=== PATIENT | male | born 1960 | race Caucasian/White ===

== ENCOUNTER 2019-09-16 17:36 | Emergency (ER) | payer OTHER, SELFPAY ==
--- OUTSIDE RECORDS SUMMARY | 2019-09-16 17:38 | XMS REPORT ---
:1960 [facility] Address [address] [place] [address] Dr. Rod [address] [place] [id number] Care Team Providers Name Role Phone Unavailable Unavailable Unavailable Problems This patient has no known problems. Allergies, Adverse Reactions, Alerts This patient has no known allergies or adverse reactions. Medications This patient has no known medications.
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
[2019-09-16 19:13] VITALS: BP 135/91; TEMP 97.7; O2SAT 99
== END 2019-09-16 19:04 | disposition home or self-care (01) ==
LOC: ER 17:36
DX: M54.5 Low back pain (principal); V43.53XA Car driver injured in collision with pick-up truck in traffic accident, initial encounter; Y93.9 Activity, unspecified; Y92.410 Unspecified street and highway as the place of occurrence of the external cause; Z88.6 Allergy status to analgesic agent
CPT/HCPCS: 74176; 99284

== ENCOUNTER 2021-06-28 07:37 | Emergency (ER) | payer BC ==
--- OUTSIDE RECORDS SUMMARY | 2021-06-28 07:40 | XMS REPORT | Continuity of Care Document ---
:1960 Author Organization [facility] t Address [address] [place] [address] Dr. Rod [address] [place] [id number] Care Team Providers Name Role Phone Unavailable Unavailable Unavailable Problems This patient has no known problems. Allergies, Adverse Reactions, Alerts This patient has no known allergies or adverse reactions. Medications This patient has no known medications. Procedures This patient has no known procedures. Results This patient has no known results.
[2021-06-28] MEDS ORDERED: ONDANSETRON 4 MG (ODT) TAB ONE (09:36)
[2021-06-28] MEDS ORDERED: ACETAMINOPHEN 500 MG TAB ONE (09:36)
--- NOTE | 2021-06-28 09:52 | RAD REPORT ---
EXAM DESCRIPTION: Deepa Pa And Lat (2 Views)06/28/2021 9:27 am CLINICAL HISTORY: Cough COMPARISON: 2012 FINDINGS: Mild bilateral pulmonary opacities suspected. The heart is normal size IMPRESSION: Mild bilateral pulmonary opacities suspected may indicate mild pneumonia
--- NOTE | 2021-06-28 11:27 | ER ---
Nurse's Notes [facility] Name: Bienvenido Abdi Age: 61 yrs Sex: Male : 1960 Arrival Date: 06/28/2021 Time: 07:41 Bed 25 Private MD: Diagnosis: Coronavirus infection, unspecified Presentation: 06/28 09:05 Chief complaint: Patient states: Diagnosed with COVID last week. Pt reports that he is ss just unable to sleep at night because of the shortness of breath. Coronavirus screen: Client presents with at least one sign or symptom that may indicate coronavirus-19. Standard/surgical mask placed on the client. Provider contacted for isolation considerations. Ebola Screen: Patient denies exposure to infectious person. Patient denies travel to an Ebola-affected area in the 21 days before illness onset. Initial Sepsis Screen: Does the patient meet any 2 criteria? Yes Does the patient have a suspected source of infection? Yes:. Risk Assessment: Do you want to hurt yourself or someone else? Patient reports no desire to harm self or others. Onset of symptoms was June 22, 2021. 09:05 Method Of Arrival: Wheelchair ss 09:05 Acuity: ERVIN 2 ss Historical: - Allergies: 09:07 HYDROCODONE; ss - Home Meds: 09:11 None [Active]; ss - PMHx: 09:11 None; ss - PSHx: 09:11 Appendectomy; Cholecystectomy; ss - Immunization history:: Client reports receiving the 2nd dose of the Covid vaccine. - Social history:: Smoking status: Patient denies any tobacco usage or history of. Screenin:11 Abuse screen: Denies threats or abuse. Denies injuries from another. Nutritional ch5 screening: No deficits noted. Tuberculosis screening: No symptoms or risk factors identified. Fall Risk None identified. Assessment: 11:09 Reassessment: Patient appears in no apparent distress at this time. Patient is alert, ch5 oriented x 3, equal unlabored respirations, skin warm/dry/pink. Pain: C/O arthritic pain throughout 05/09. 12:38 Reassessment: No changes from previously documented assessment. Pt stated " I got a ch5 little nap in ". Vital Signs: 09:05 BP 122 / 85; Pulse 129; Resp 22; Temp 100.3(O); Pulse Ox 96% on R/A; Weight 108.41 kg; ss Height 5 ft. 10 in. (177.80 cm); Pain 6/10; 11:05 BP 130 / 88; Pulse 108; Resp 20; Temp 98; Pulse Ox 95% on R/A; Pain 7/10; ch5 11:11 Pulse 108; ch5 12:41 BP 131 / 89; Pulse 100; Resp 18; Pulse Ox 95% on R/A; Pain 7/10; ch5 09:05 Body Mass Index 34.29 (108.41 kg, 177.80 cm) ED Course: 07:41 Patient arrived in ED. ds1 09:07 Triage completed. ss 09:07 Arm band placed on right wrist. ss 09:14 Iris Isaac FNP-C is [facility]. kb 09:14 Bonilla Salgado MD is Attending Physician. kb 09:27 Chest Pa And Lat (2 Views) XRAY In Process Unspecified. EDMS 11:00 Ruddy Ramirez, RN is Primary Nurse. ch5 11:11 Patient has correct armband on for positive identification. Bed in low position. Call ch5 light in reach. Side rails up X 1. 12:38 No provider procedures requiring assistance completed. Patient did not have IV access ch5 during this emergency room visit. Administered Medications: 09:21 Drug: Tylenol 1000 mg Route: PO; ss 11:11 Follow up: Pulse 108 bpm; Response: Cardiac rhythm changed; Cardiac rhythm changed Hr ch5 down to 108 09:21 Drug: Ondansetron 4 mg Route: PO; ss 11:11 Follow up: Response: Nausea is decreased ch5 Outcome: 11:26 Discharge ordered by MD. kb 12:38 Discharged to home via wheelchair. ch5 12:38 Condition: stable 12:38 Discharge instructions given to patient, family. 12:44 Patient left the ED. ch5 Signatures: Dispatcher [employer] EDNJ Iris Isaac FNP-C FNP-Ckb Sanford, Demi ds1 Arleen Mcduffie RN RN Ruddy Ramirez, RITESH RN ch5 Corrections: (The following items were deleted from the chart) 09:11 09:05 BP 122 / 85; Pulse 129bpm; Resp 22bpm; Pulse Ox 96% RA; Temp 98.0F Temporal; ss 108.41 kg; Height 5 ft. 10 in.; BMI: 34.2; Pain 6/10; ss
--- NOTE | 2021-06-28 11:27 | EDPHYS ---
Physician Documentation [facility] Name: Bienvenido bAdi Age: 61 yrs Sex: Male : 1960 Arrival Date: 06/28/2021 Time: 07:41 Bed 25 Private MD: ED Physician Bonilla Salgado HPI: 06/28 12:16 This 61 yrs old Male presents to ER via Wheelchair with complaints of kb Shortness of Breath -Covid+. 12:16 The patient or guardian reports cough, difficulty breathing. kb 12:16 Onset: The symptoms/episode began/occurred 6 day(s) ago. Severity of symptoms: At their kb worst the symptoms were mild, moderate, in the emergency department the symptoms are unchanged. Modifying factors: The symptoms are alleviated by nothing, the symptoms are aggravated by nothing. Associated signs and symptoms: The patient has no apparent associated signs or symptoms. The patient has not experienced similar symptoms in the past. The patient has not recently seen a physician. Pt reports he was diagnosed with covid last week. Has had cough, shortness of breath and malaise since then, but last night was unable to sleep. States he would dose off and then wake up as he gasped for a breath. No resp distress noted. Oxygen 95-96% on room air. . Historical: - Allergies: 09:07 HYDROCODONE; ss - Home Meds: 09:11 None [Active]; ss - PMHx: 09:11 None; ss - PSHx: 09:11 Appendectomy; Cholecystectomy; ss - Immunization history:: Client reports receiving the 2nd dose of the Covid vaccine. - Social history:: Smoking status: Patient denies any tobacco usage or history of. ROS: 12:14 Neuro: Negative for headache, weakness, numbness, tingling, and seizure. kb 12:14 Constitutional: Positive for fatigue, malaise, Negative for body aches, chills, fever, poor PO intake, weight loss. 12:14 Respiratory: Positive for cough, dyspnea on exertion, shortness of breath. 12:14 All other systems are negative. Exam: 12:15 Constitutional: This is a well developed, well nourished patient who is awake, alert, kb and in no acute distress. Head/Face: Normocephalic, atraumatic. ENT: Moist Mucous membranes Cardiovascular: Regular rate and rhythm with a normal S1 and S2. No gallops, murmurs, or rubs. No pulse deficits. Respiratory: Respirations even and unlabored. No increased work of breathing, no retractions or nasal flaring. Abdomen/GI: Soft, non-tender. No distention Skin: Warm, dry with normal turgor. Normal color. MS/ Extremity: Pulses equal, no cyanosis. Neurovascular intact. Full, normal range of motion. Neuro: Awake and alert, GCS 15, oriented to person, place, time, and situation. Moves all extremities. Normal gait. Psych: Awake, alert, with orientation to person, place and time. Behavior, mood, and affect are within normal limits. Vital Signs: 09:05 BP 122 / 85; Pulse 129; Resp 22; Temp 100.3(O); Pulse Ox 96% on R/A; Weight 108.41 kg; ss Height 5 ft. 10 in. (177.80 cm); Pain 6/10; 11:05 BP 130 / 88; Pulse 108; Resp 20; Temp 98; Pulse Ox 95% on R/A; Pain 7/10; ch5 11:11 Pulse 108; ch5 12:41 BP 131 / 89; Pulse 100; Resp 18; Pulse Ox 95% on R/A; Pain 7/10; ch5 09:05 Body Mass Index 34.29 (108.41 kg, 177.80 cm) ss MDM: 09:14 Patient medically screened. kb 12:13 Data reviewed: vital signs, nurses notes. Data interpreted: Pulse oximetry: on room air kb is 95 %. Interpretation: normal. Counseling: I had a detailed discussion with the patient and/or guardian regarding: the historical points, exam findings, and any diagnostic results supporting the discharge/admit diagnosis, radiology results, the need for outpatient follow up, a family practitioner, to return to the emergency department if symptoms worsen or persist or if there are any questions or concerns that arise at home. 12:18 ED course: Pt educated on COVID treatment guidelines. . kb 06/28 09:15 Order name: Chest Pa And Lat (2 Views) XRAY; Complete Time: 10:01 kb 06/28 10:41 Order name: Vital Signs; Complete Time: 11:13 kb Administered Medications: 09:21 Drug: Tylenol 1000 mg Route: PO; ss 11:11 Follow up: Pulse 108 bpm; Response: Cardiac rhythm changed; Cardiac rhythm changed Hr ch5 down to 108 09:21 Drug: Ondansetron 4 mg Route: PO; ss 11:11 Follow up: Response: Nausea is decreased ch5 Disposition Summary: 06/28/21 11:26 Discharge Ordered Location: Home kb Condition: Stable kb Diagnosis - Coronavirus infection, unspecified kb Followup: kb - With: Emergency Department - When: As needed - Reason: Worsening of condition Followup: kb - With: Private Physician - When: 2 - 3 days - Reason: Recheck today's complaints, Continuance of care, Re-evaluation by your physician Discharge Instructions: - Discharge Summary Sheet kb - Viral Respiratory Infection, Kvmu-Ha-Tjql kb - COVID-19 kb Forms: - Medication Reconciliation Form kb - Thank You Letter kb - Antibiotic Education kb - Prescription Opioid Use kb Prescriptions: - Zofran 4 mg Oral Tablet - take 1 tablet by ORAL route every 6 hours As needed; 20 tablet; Refills: 0, kb Product Selection Permitted Addendum: 06/29/2021 20:35 Co-signature as Attending Physician, Bonilla Salgado MD I agree with the assessment m a2 and plan of care. Signatures: Dispatcher [employer] Iris Bryant, WAYNE-C WAYNE-Arleen Berrios, RITESH RN Bonilla Salgado MD MD nm2 Ruddy Ramirez RN ch5
[2021-06-28 13:01] VITALS: TEMP 98; O2SAT 95
[2021-06-28 13:04] VITALS: BP 131/89
== END 2021-06-28 12:44 | disposition home or self-care (01) ==
LOC: ER 07:37
DX: U07.1 COVID-19 (principal); Z88.5 Allergy status to narcotic agent
CPT/HCPCS: 71046; 99283

== ENCOUNTER 2021-07-02 13:47 | Emergency (ER) | payer BC ==
--- OUTSIDE RECORDS SUMMARY | 2021-07-02 13:50 | XMS REPORT | Continuity of Care Document ---
:1960 Author Organization [facility] t Address [address] [place] [address] Dr. Rod [address] [place] [id number] Care Team Providers Name Role Phone Unavailable Unavailable Unavailable Problems This patient has no known problems. Allergies, Adverse Reactions, Alerts This patient has no known allergies or adverse reactions. Medications This patient has no known medications. Procedures This patient has no known procedures. Results This patient has no known results.
[2021-07-02 14:46] LABS: Protime INR 0.97
[2021-07-02 14:51] LABS: Absolute Lymphocytes (CBC) 1.5 K/uL (0.7-4.9); Basophils % 0.4 % (0-1.3); Hematocrit 46.3 % (39.6-49.0); MPV 7.5 fL (7.6-11.3); RBC Red Blood Cell Count 5.25 M/uL (4.33-5.43)
--- NOTE | 2021-07-02 14:51 | RAD REPORT ---
EXAM DESCRIPTION: RAD - Chest Single View - 07/02/2021 2:33 pm CLINICAL HISTORY: DYSPNEA Chest pain. COMPARISON: Chest Pa And Lat (2 Views) dated 06/28/2021; CHEST PA AND LAT 2 VIEW dated 05/10/2012; [facility] ST SINGLE VIEW dated 03/27/2012 FINDINGS: Portable technique limits examination quality. Subtle interstitial opacities are again seen, slightly progressive. This probably indicates a mild vi ral infection. The heart is normal in size. No displaced fractures.
[2021-07-02 15:24] LABS: ALT/SGPT 43 U/L (12-78); AST/SGOT 25 U/L (15-37); Albumin 2.7 g/dL (3.4-5.0); Alkaline Phosphatase 80 U/L (45-117); BUN Blood Urea Nitrogen 10 mg/dL (7-18); Bicarbonate 26 mmol/L (21-32); Bilirubin Direct 0.2 mg/dL (0-0.2); Bilirubin Total 0.7 mg/dL (0.2-1.0); Lipase 207 U/L (73-393); Potassium 3.5 mmol/L (3.5-5.1); Protein, Total 7.3 g/dL (6.4-8.2); Sodium Level 132 mmol/L (136-145); Troponin (Emerg Dept Use Only) < 0.02 ng/mL (0.0-0.045)
[2021-07-02 15:25] LABS: Glucose Level 417 mg/dL (74-106)
--- NOTE | 2021-07-02 16:01 | RAD REPORT ---
EXAM DESCRIPTION: CT - Chest For Pe Angio - 07/02/2021 3:47 pm CLINICAL HISTORY: Chest pain. DYSPNEA COMPARISON: No comparisons TECHNIQUE: CT angiogram of the pulmonary arteries was performed with MIP. All CT scans are performed using dose optimization technique as appropriate and may include automated exposure control or mA/KV adjustment according to patient size. FINDINGS: No evidence of pulmonary thromboembolism. No acute aortic finding demonstrated. Uyfv-jt-zhtcymao ground-glass lung opacities are present bilaterally, greater on the right. No significant pericardial or pleural fluid. No concerning bony finding. IMPRESSION: No evidence of pulmonary thromboembolism. Hwsu-cl-[id number] ground-glass lung opacities, greater on the right, most compatible with COVID-19 inf ection.
[2021-07-02 16:25] LABS: Ferritin 1445.4 ng/mL (26-388)
[2021-07-02] MEDS ORDERED: INSULIN -REGULAR HUMAN 50 UNIT/0.5 ML ML ONE (16:25)
[2021-07-02] MEDS ORDERED: NA CHLORIDE 0.9% 1,000 ML ONE (16:26)
--- NOTE | 2021-07-02 16:41 | ER ---
Nurse's Notes [facility] Name: Bienvenido Abdi Age: 61 yrs Sex: Male : 1960 Arrival Date: 07/02/2021 Time: 13:49 Bed 12 Private MD: Diagnosis: Coronavirus infection, unspecified;Pneumonia due to SARS-associated coronavirus;Hypoxia;Hyperglycemia, unspecified Presentation: 07/02 14:03 Chief complaint: Patient states: Covid + 06/23, SOB, dizziness x 4 days. Coronavirus kg screen: Vaccine status: Patient reports receiving the 1st dose of the Covid vaccine. Date January 22, 2021 [place] Client denies travel out of the [place] in the last 14 days. At this time, unable to obtain information related to travel outside the [place] cough unrelated to allergies, shortness of breath, Client presents with at least one sign or symptom that may indicate coronavirus-19. Standard/surgical mask placed on the client. Provider contacted for isolation considerations. Client reports previous positive COVID test result. Date of collection: June 23, 2021. Ebola Screen: Patient negative for fever greater than or equal to 101.5 degrees Fahrenheit, and additional compatible Ebola Virus Disease symptoms Patient denies exposure to infectious person. Patient denies travel to an Ebola-affected area in the 21 days before illness onset. Initial Sepsis Screen: Does the patient meet any 2 criteria? No. Patient's initial sepsis screen is negative. Does the patient have a suspected source of infection? No. Patient's initial sepsis screen is negative. Risk Assessment: Do you want to hurt yourself or someone else? Patient reports no desire to harm self or others. Onset of symptoms was June 28, 2021. 14:03 Method Of Arrival: Ambulatory kg 14:03 Acuity: ERVIN 3 kg Triage Assessment: 14:09 General: Appears in no apparent distress. Behavior is calm, cooperative, appropriate kg for age, quiet. Pain: Complains of pain in Joints, head Pain currently is 6 out of 10 on a pain scale. at worst was 10 out of 10 on a pain scale. Respiratory: Reports shortness of breath at rest on exertion cough that is non-productive, Onset: The symptoms/episode began/occurred gradually, the patient has moderate shortness of breath Denies. Historical: - Allergies: 14:09 HYDROCODONE; kg - Home Meds: 14:09 None [Active]; kg - PMHx: 14:09 None; kg - PSHx: 14:09 Appendectomy; Cholecystectomy; kg - Immunization history:: Adult Immunizations up to date, Client reports receiving the Booker \T\ Booker single-dose vaccine. Date received January 22, 2021. - Social history:: Smoking status: Patient denies any tobacco usage or history of. Patient uses alcohol, occasionally. Screenin:28 Abuse screen: Denies threats or abuse. Nutritional screening: No deficits noted. vg1 Tuberculosis screening: No symptoms or risk factors identified. Fall Risk No fall in past 12 months (0 pts). No secondary diagnosis (0 pts). IV access (20 points). Ambulatory Aid- None/Bed Rest/Nurse Assist (0 pts). Gait- Normal/Bed Rest/Wheelchair (0 pts) Mental Status- Oriented to own ability (0 pts). Total Fernandez Fall Scale indicates No Risk (0-24 pts). Assessment: 14:27 General: Appears in no apparent distress. uncomfortable, Behavior is calm, cooperative. vg1 Pain: Complains of pain in body Pain currently is 6 out of 10 on a pain scale. Quality of pain is described as aching. Neuro: Level of Consciousness is awake, alert, obeys commands, Oriented to person, place, time, situation. Cardiovascular: Patient's skin is warm and dry. Respiratory: Reports shortness of breath at rest on exertion cough that is dry, Airway is patent Respiratory effort is even, unlabored, Respiratory pattern is tachypnea Breath sounds are clear bilaterally. GI: Patient currently denies diarrhea, nausea, vomiting. : No signs and/or symptoms were reported regarding the genitourinary system. EENT: No signs and/or symptoms were reported regarding the EENT system. Derm: Skin is intact, is healthy with good turgor. Musculoskeletal: Circulation, motion, and sensation intact. 16:00 Reassessment: Patient appears in no apparent distress at this time. No changes from vg1 previously documented assessment. Patient and/or family updated on plan of care and expected duration. Pain level reassessed. Patient is alert, oriented x 3, equal unlabored respirations, skin warm/dry/pink. stated O2 is helping him feel better. 17:04 Reassessment: Patient appears in no apparent distress at this time. Patient and/or vg1 family updated on plan of care and expected duration. Pain level reassessed. Patient is alert, oriented x 3, equal unlabored respirations, skin warm/dry/pink. Patient states feeling better. 17:50 Reassessment: Patient appears in no apparent distress at this time. Patient and/or vg1 family updated on plan of care and expected duration. Pain level reassessed. Patient is alert, oriented x 3, equal unlabored respirations, skin warm/dry/pink. FSBG 278. Provider notified Patient denies pain at this time. Patient states feeling better. 21:03 Reassessment: Patient appears in no apparent distress at this time. Patient and/or vg1 family updated on plan of care and expected duration. Pain level reassessed. Patient is alert, oriented x 3, equal unlabored respirations, skin warm/dry/pink. Patient denies pain at this time. Patient states feeling better. Vital Signs: 14:03 BP 111 / 98; Pulse 83; Resp 20; Temp 96.9(TE); Pulse Ox 83% on R/A; Weight 107.05 kg; kg Height 5 ft. 10 in. (177.80 cm); Pain 6/10; 14:28 BP 133 / 79; Pulse 104; Resp 24; Temp 97.9; Pulse Ox 94% on 2 lpm NC; vg1 16:20 BP 136 / 72; Pulse 92; Resp 24; Pulse Ox 98% on 3 lpm NC; vg1 17:30 BP 159 / 67; Pulse 94; Resp 20; Pulse Ox 99% on 3 lpm NC; vg1 19:15 BP 136 / 82; Pulse 98; Resp 22; Pulse Ox 98% on 3 lpm NC; vg1 21:02 BP 130 / 73; Pulse 93; Resp 22; Temp 98.2(O); Pulse Ox 97% on 3 lpm NC; vg1 14:03 Body Mass Index 33.86 (107.05 kg, 177.80 cm) kg ED Course: 13:49 Patient arrived in ED. rg4 14:09 Triage completed. kg 14:10 Iris Isaac [facility]-C [facility]. kb 14:10 Aries Sterling MD is Attending Physician. kb 14:15 Inserted saline lock: 20 gauge in right antecubital area, using aseptic technique. vg1 ,using aseptic technique. completed by Arleen AWAD Blood collected. 14:17 Lupe Weaver, RN is Primary Nurse. vg1 14:28 Patient has correct armband on for positive identification. Bed in low position. Call vg1 light in reach. Side rails up X 1. 14:29 Arm band placed on. vg1 14:29 No provider procedures requiring assistance completed. vg1 14:34 CXR XRAY In Process Unspecified. EDMS 15:47 CT Chest For PE Angio In Process Unspecified. EDMS 17:12 Patient transferred, IV remains in place. vg1 Administered Medications: 16:08 Drug: NS 0.9% 1000 ml Route: IV; Rate: 1000 ml; Site: right antecubital; vg1 17:05 Follow up: IV Status: Completed infusion; IV Intake: 1000ml vg1 16:10 Drug: Insulin Regular Human 5 units {Co-Signature: kg (Lurdes Henderson RN).} Route: IVP; vg1 Site: right antecubital; 17:51 Follow up: Response: No adverse reaction; Blood sugar is lowered vg1 16:50 Drug: SOLU-Medrol (methylPrednisoLONE) 125 mg Route: IVP; Site: right antecubital; vg1 17:43 Follow up: Response: No adverse reaction vg1 Intake: 17:05 IV: 1000ml; Total: 1000ml. vg1 Outcome: 16:41 ER care complete, transfer ordered by MD. riggins 17:12 Transferred by ground EMS to [facility]. vg1 17:12 Condition: stable 17:12 Instructed on the need for transfer. 21:04 Patient left the ED. vg1 Signatures: Dispatcher [employer] EDMS Iris Isaac, CHIARA BLACK-Ammy Potts rg4 Lupe Weaver, RN RN Lurdes Ro, RN RN kg Lurdes Henderson RN kg
--- NOTE | 2021-07-02 16:42 | EDPHYS ---
Physician Documentation [facility] Name: Bienvenido Abdi Age: 61 yrs Sex: Male : 1960 Arrival Date: 07/02/2021 Time: 13:49 Bed 12 Private MD: ED Physician Aries Sterling HPI: 07/02 15:52 This 61 yrs old Male presents to ER via Ambulatory with complaints of Low O2, kb Breathing Difficulty. 15:52 The patient has shortness of breath at rest. Onset: The symptoms/episode began/occurred kb 10 day(s) ago. Duration: The symptoms are continuous. The patient's shortness of breath is aggravated by exertion, is alleviated by nothing. Associated signs and symptoms: Pertinent positives: non-productive cough. Severity of symptoms: At their worst the symptoms were moderate in the emergency department the symptoms are unchanged. The patient has not experienced similar symptoms in the past. The patient has been recently seen at the [facility] Emergency Department. Pt tested positive for covid on 06/23/21. Came in for increased shortness of breath a few days ago and oxygen saturation was 95% on room air so he was discharged home. Pt was educated to monitor oxygen and return for worsening symptoms. Pt states his oxygen has been in the mid 80s since yesterday. Historical: - Allergies: 14:09 HYDROCODONE; kg - Home Meds: 14:09 None [Active]; kg - PMHx: 14:09 None; kg - PSHx: 14:09 Appendectomy; Cholecystectomy; kg - Immunization history:: Adult Immunizations up to date, Client reports receiving the Booker \T\ Booker single-dose vaccine. Date received January 22, 2021. - Social history:: Smoking status: Patient denies any tobacco usage or history of. Patient uses alcohol, occasionally. ROS: 15:51 Constitutional: Negative for fever, chills, and weight loss. kb 15:51 Respiratory: Positive for cough, shortness of breath, Negative for dyspnea on exertion, hemoptysis, orthopnea, pleurisy, sputum production, wheezing. 15:51 All other systems are negative. Exam: 15:51 Constitutional: This is a well developed, well nourished patient who is awake, alert, kb and in no acute distress. Head/Face: Normocephalic, atraumatic. ENT: Moist Mucous membranes Cardiovascular: Regular rate and rhythm with a normal S1 and S2. No gallops, murmurs, or rubs. No pulse deficits. Abdomen/GI: Soft, non-tender. No distention Skin: Warm, dry with normal turgor. Normal color. MS/ Extremity: Pulses equal, no cyanosis. Neurovascular intact. Full, normal range of motion. Neuro: Awake and alert, GCS 15, oriented to person, place, time, and situation. Moves all extremities. Normal gait. Psych: Awake, alert, with orientation to person, place and time. Behavior, mood, and affect are within normal limits. 15:51 Respiratory: mild respiratory distress is noted, Respirations: labored breathing, that is mild, Breath sounds: are clear throughout. Vital Signs: 14:03 BP 111 / 98; Pulse 83; Resp 20; Temp 96.9(TE); Pulse Ox 83% on R/A; Weight 107.05 kg; kg Height 5 ft. 10 in. (177.80 cm); Pain 6/10; 14:28 BP 133 / 79; Pulse 104; Resp 24; Temp 97.9; Pulse Ox 94% on 2 lpm NC; vg1 16:20 BP 136 / 72; Pulse 92; Resp 24; Pulse Ox 98% on 3 lpm NC; vg1 17:30 BP 159 / 67; Pulse 94; Resp 20; Pulse Ox 99% on 3 lpm NC; vg1 19:15 BP 136 / 82; Pulse 98; Resp 22; Pulse Ox 98% on 3 lpm NC; vg1 21:02 BP 130 / 73; Pulse 93; Resp 22; Temp 98.2(O); Pulse Ox 97% on 3 lpm NC; vg1 14:03 Body Mass Index 33.86 (107.05 kg, 177.80 cm) kg MDM: 14:15 Patient medically screened. [facility] 15:50 Data reviewed: vital signs, nurses notes. Data interpreted: Pulse oximetry: on room air kb is 83 %. Interpretation: hypoxia. Plan: O2 by NC applied. Counseling: I had a detailed discussion with the patient and/or guardian regarding: the historical points, exam findings, and any diagnostic results supporting the discharge/admit diagnosis, lab results, radiology results, the need for further work-up and treatment in the hospital. ED course: O2 saturation increased to 94% on 3L. 16:40 ED course: Dr Siegel, hospitalist at [facility], accepts pt for transfer. kb 07/02 14:11 Order name: BMP; Complete Time: 16:28 kb 07/02 14:11 Order name: Blood Culture Adult (2) kb 07/02 14:11 Order name: C-Reactive Protein; Complete Time: 16:28 kb 07/02 14:11 Order name: CBC with Diff; Complete Time: 14:57 kb 07/02 14:11 Order name: D-Dimer; Complete Time: 14:49 kb 07/02 14:11 Order name: Ferritin; Complete Time: 16:28 kb 07/02 14:11 Order name: LFT's; Complete Time: 16:28 kb 07/02 14:11 Order name: Lactate; Complete Time: 16:01 kb 07/02 14:11 Order name: Lipase; Complete Time: 16:28 kb 07/02 14:11 Order name: PT-INR; Complete Time: 14:49 kb 07/02 14:11 Order name: Procalcitonin; Complete Time: 15:31 kb 07/02 14:11 Order name: Ptt, Activated; Complete Time: 14:49 kb 07/02 14:11 Order name: Troponin (emerg Dept Use Only); Complete Time: 16:28 kb 07/02 14:11 Order name: CXR XRAY; Complete Time: 14:57 kb 07/02 14:11 Order name: EKG; Complete Time: 14:12 kb 07/02 14:11 Order name: Cardiac monitoring; Complete Time: 16:22 kb 07/02 14:11 Order name: Droplet/Contact Precautions; Complete Time: 15:59 kb 07/02 14:11 Order name: EKG - Nurse/Tech; Complete Time: 16:22 kb 07/02 14:11 Order name: IV Start; Complete Time: 14:26 kb 07/02 14:11 Order name: Labs collected and sent; Complete Time: 14:26 kb 07/02 14:11 Order name: O2 Per Protocol; Complete Time: 14:26 kb 07/02 14:11 Order name: O2 Sat Monitoring; Complete Time: 14:26 kb 07/02 14:49 Order name: CT Chest For PE Angio; Complete Time: 16:02 kb 07/02 17:54 Order name: Hemoglobin A1c EDMS 07/02 17:59 Order name: Glucose, Ancillary Testing EDMS Administered Medications: 16:08 Drug: NS 0.9% 1000 ml Route: IV; Rate: 1000 ml; Site: right antecubital; vg1 17:05 Follow up: IV Status: Completed infusion; IV Intake: 1000ml vg1 16:10 Drug: Insulin Regular Human 5 units {Co-Signature: kg (Lurdes Henderson RN).} Route: IVP; vg1 Site: right antecubital; 17:51 Follow up: Response: No adverse reaction; Blood sugar is lowered vg1 16:50 Drug: SOLU-Medrol (methylPrednisoLONE) 125 mg Route: IVP; Site: right antecubital; vg1 17:43 Follow up: Response: No adverse reaction vg1 Disposition: 07/03 08:20 Co-signature as Attending Physician, Aries Sterling MD I agree with the assessment and truman plan of care. Disposition Summary: 07/02/21 16:41 Transfer Ordered Transfer Location: [facility] kb Reason: Higher level of care kb Condition: Stable kb Problem: new kb Symptoms: are unchanged kb Accepting Physician: Christal(07/02/21 21:04) vg1 Diagnosis - Coronavirus infection, unspecified kb - Pneumonia due to SARS-associated coronavirus kb - Hypoxia kb - Hyperglycemia, unspecified kb Forms: - Medication Reconciliation Form kb - SBAR form kb Signatures: Dispatcher [employer] EDIris Hoang FNP-C WAYNE-Aries Thorne MD MD cha Garcia, Victoria, RN RN vg1 Lurdes Henderson RN RN kg Lurdes Henderson RN kg Corrections: (The following items were deleted from the chart) 07/02 15:35 15:35 HEMOGLOBIN A1C+CHEM A1C.LAB.BRZ ordered. EDKY EDMS 15:56 15:52 Pt tested positive for covid on 06/23/21. Came in for increased shortness of kb breath a few days ago and oxygen saturation was 95% on room air so he was discharged home. Pt was educated to monitor oxygen and return for worsening symptoms. Pt states his oxygen has been in the mid 80s for the last few days. kb 16:41 16:41 Christal riggins kb 17:52 17:52 HEMOGLOBIN A1C+CHEM A1C.LAB.BRZ ordered. EDMS EDMS 21:04 16:41 Christal riggins vg1
[2021-07-02] MEDS ORDERED: METHYLPREDNISOLONE 125 MG INJ ONE (17:09)
[2021-07-02 21:24] VITALS: BP 130/73; TEMP 98.2; O2SAT 97
--- NOTE | 2021-07-03 07:43 | EKG ---
Test Date: 2021-07-02 Test Time: 16:15:49 Second Chef: KYLE MEASUREMENT RESULTS: Intervals: Rate: 90 TN: 150 QRSD: 80 QT: 368 QTc: 450 [place]: P: 38 TN: 150 QRS: -5 T: -12 INTERPRETIVE STATEMENTS: Normal sinus rhythm Anterior infarct, age undetermined ST & T wave abnormality, consider inferior ischemia Abnormal ECG Compared to ECG 03/26/2012 18:04:45 Myocardial infarct finding now present ST (T wave) deviation now present Possible ischemia now present Electronically Signed On 07-03-21 07:41:52 CDT by Yo Apple
== END 2021-07-02 21:04 | disposition short-term general hospital (02) ==
LOC: ER 13:47
DX: U07.1 COVID-19 (principal); J12.82 Pneumonia due to coronavirus disease 2019; R73.9 Hyperglycemia, unspecified; Z88.5 Allergy status to narcotic agent
CPT/HCPCS: 96361; 93005; 87040 ×2; 85025; 80048; 36415; 85610; 82947; 85379; 80076; 83605; 85730; 83036; 84484; 82728; 83690; 84145; 86140; 71275; 71045; 96375; 96374; 99285; Q9967; J7030; J2930